=== PATIENT | female | born 1990 | race Caucasian/White ===

== ENCOUNTER 2019-01-20 14:27 | Inpatient (IN) ==
[2019-01-20] MEDS ORDERED: NS 1,000 ML ONE (14:47)
--- NOTE | 2019-01-20 14:58 | PROVIDER DOCUMENTATION ---
HPI-General Adult - General Chief Complaint: SEPSIS ALERT - P Stated Complaint: CHILLS / FEVER / CHEST SIMMONS Time Seen by Provider: 01/20/19 14:40 Source: patient Allergies/Adverse Reactions: Patient Allergies Allergy/AdvReac Type Severity Reaction Status Date / Time No Known Allergies Allergy Verified 01/20/19 14:58 Home Medications: Home Medication List Medication Instructions Recorded Confirmed Last Taken Type NK [No Home Medications] 01/20/19 01/20/19 Unknown History - History of Present Illness -Gen Adult Nature of Presenting Problems: 28yo female presents with CC of nausea, vomiting, and and fevers. The onset was today. The patient reports that over the last 2 weeks she has noted right low back pain as well as chills. The patient reports that she has not had much of an appetite. She reports that she has also had some abdominal pain. The patient reports hx of ureter replacement in July after injured ureter in endometriosis surgery, and she has been followed by a urologist for this and has been having pain when she holds her urine. The patient denies other PMH outside of endometriosis. Review of Systems - Adult - REVIEW OF SYSTEMS - ADULT Constitutional: reports: fever Eyes: reports: no symptoms reported. denies: eye pain Ears, Nose, Mouth & Throat: reports: no symptoms reported. denies: throat pain Cardiovascular: reports: no symptoms reported. denies: chest pain Respiratory: reports: no symptoms reported Gastrointestinal: reports: abdominal pain, nausea, vomiting Genitourinary: reports: flank pain, other (pain with holding urination). denies: dysuria Musculoskeletal: reports: no symptoms reported Integumentary: reports: no symptoms reported Neurological: reports: other (lightheadedness) Psychiatric: reports: no symptoms reported. denies: alcohol/drug dependence Endocrine: reports: no symptoms reported Hematologic/Lymphatic: reports: no symptoms reported, other (no bleeding) Allergic/Immunologic: reports: no symptoms reported, other (no swelling) Past History - Adult - PAST MEDICAL HISTORY-ADULT Review of Records: reports: Old Records Reviewed Major Childhood Illnesses: reports: denies history Cardiovascular: reports: denies history Respiratory: reports: denies history Gastrointestinal: reports: GERD Obstetrical/Gynecological: reports: endometriosis, ovarian cysts Genitourinary: reports: denies history Musculoskeletal: reports: denies history Neurological: reports: denies history Endocrine/Immune: reports: denies history Other Conditions: reports: denies history - PRIOR SURGERIES/PROCEDURES Surgical/Procedure History: reports: reviewed, not pertinent, other (D&C) - IMMUNIZATION STATUS Childhood Immunizations: See Nurse Assessment Flu Vaccine: See Nurse Assessment - FAMILY HISTORY Family History: reviewed, not pertinent Physical Exam-General - PHYSICAL EXAM-ADULT Initial Vital Signs Reviewed: Yes - CONSTITUTIONAL General Appearance: alert, mild distress, anxious - EYES Eyes: negative: conjuctival exudate, photophobia, scleral icterus - HEAD, EARS, NOSE, MOUTH & THROAT HENMT: normocephalic/atraumatic, moist mucous membranes - NECK Neck: non-tender - RESPIRATORY Respiratory: normal breath sounds, no respiratory distress - CARDIOVASCULAR Cardiovascular: no edema, tachycardia - GASTROINTESTINAL (ABDOMEN) Abdominal Exam: soft, rebound, tenderness (RLQ), McBurney's point tenderness. negative: guarding - MUSCULOSKELETAL Back Exam: no CVA tenderness Extremity: non-tender - SKIN Integumentary: normal color, warm/dry - NEUROLOGIC Neurologic: grossly normal - PSYCHIATRIC Psych/Mental Status: normal mood/affect, normal thought content, normal thought process, anxious Progress - PLAN OF CARE/RESULTS Progress/Plan/Lab Results: Vital Signs - 8 hr 01/20/19 14:32 Temperature 105.5 F H Pulse Rate 170 H Respiratory Rate 24 Blood Pressure 156/81 O2 Sat by Pulse Oximetry 96 Orders Category Date Time Status Cardiac Monitoring DIRECTED Care 01/20/19 14:41 Active ED: Urine Bedside ORDERED Care 01/20/19 14:52 Ordered IV Insertion ORDERED Care 01/20/19 14:41 Active Notify MD of + Sepsis Screen NOW Care 01/20/19 14:41 Active Notify Physician As Ordered Care 01/20/19 14:41 Active CHEST-1 VIEW [RAD] Stat Exams 01/20/19 14:41 Ordered BLOOD CULTURE [BLDCUL] Stat Lab 01/20/19 14:41 Uncollected CBC WITH DIFF [HEME] Stat Lab 01/20/19 14:41 Uncollected CK PROFILE [SP CHEM] Stat Lab 01/20/19 14:41 Uncollected COMPREHENSIVE METABOLIC PANEL [CHEM] Stat Lab 01/20/19 14:41 Uncollected LACTATE, PLASMA [CHEM] Q3H Lab 01/20/19 14:45 Uncollected LACTATE, PLASMA [CHEM] Q3H Lab 01/20/19 17:45 Uncollected LACTATE, PLASMA [CHEM] Q3H Lab 01/20/19 20:45 Uncollected TEST-SERUM [PREG] Stat Lab 01/20/19 14:52 Ordered TEST-URINE [PREG] Stat Lab 01/20/19 14:43 Uncollected PROTIME WITH INR [COAG] Stat Lab 01/20/19 14:41 Uncollected PTT [COAG] Stat Lab 01/20/19 14:41 Uncollected TROPONIN T Stat Lab 01/20/19 14:[address] W/POSS RFLX CULT [URINALYSIS] Stat Lab 01/20/19 14:41 Uncollected 0.9% Sodium Chloride Inj [Ns] 1,000 ml Med 01/20/19 14:47 Discontinued .ROUTE As directed Oxygen Device Stat Oth 01/20/19 14:41 Active EKG [EKG] Stat Ther 01/20/19 14:52 Ordered Result Diagrams: 01/20/19 15:00 01/20/19 14:52 - REASSESSMENT Reassessment #1 Status: improving (HR improved with fluids. Urine appears infectious. Given hx, some concern for pylonephritis or other intra-abdominal infection. Will plan for CT abd/pelvis.) Reassessment #2 Status: other (Discussed case with) Departure - Departure Date of Disposition Decision: 01/20/19 Time of Disposition Decision: 17:14 DIAGNOSIS: Pyelonephritis Sepsis Qualifiers: Sepsis type: sepsis due to unspecified organism Sepsis acute organ dysfunction status: without acute organ dysfunction Qualified Code(s): A41.9 - Sepsis, unspecified organism Disposition: ADMITTED INPATIENT 09 Certified Medical Emergency: Emergent Condition: Fair Referrals and Follow-Ups: None,PCP [Primary Care Provider] - - Critical Care Note This patient required my direct & personal management of CC.: No Attestation - Physician/ ANNA Attestation Patient care was provided by Advanced Practice Provider:: No The physician spent face to face time with patient:: Yes Advanced Practice Provider documentation review:: Supervising physician onsite and consulted in the evaluation and care of this patient. The physician did have a face to face encounter with the patient.
[2019-01-20] MEDS ORDERED: ZOFRAN IV ONE (15:19)
[2019-01-20] MEDS ORDERED: NS 1,000 ML IV ONE ×3 (15:28→18:13)
[2019-01-20] MEDS ORDERED: TYLENOL PO ONE (15:30)
[2019-01-20] MEDS ORDERED: NS 2,000 ML IV ONE (15:31)
[2019-01-20 15:33] LABS: INR 1.04; PROTIME 14.1 Seconds (11.0-16.0)
[2019-01-20 15:33] LABS: BILIRUBIN URINE NEGATIVE (NEGATIVE); BLOOD URINE 2+ (NEGATIVE); CLARITY VERY CLOUDY (CLEAR); COLOR YELLOW; GLUCOSE URINE NEGATIVE (NEGATIVE); KETONE URINE TRACE mg/dL (NEGATIVE); LEUKOCYTES URINE 2+ (NEGATIVE); NITRITE URINE POSITIVE (NEGATIVE); PROTEIN URINE 2+(100 mg/dL) mg/dL (NEGATIVE); SP GRAVITY URINE 1.015; UROBILINOGEN URINE NORMAL
[2019-01-20 15:34] LABS: PTT 35.3 Seconds (22.3-41.8)
--- NOTE | 2019-01-20 15:36 | Diag Imaging Result Doc PS360 ---
CHEST-1 VIEW - 01/20/2019 INDICATION: possible sepsis COMPARISON: 06/14/2018 FINDINGS: The lungs are normally expanded and clear. Heart size and mediastinal contours are normal. No pneumothorax or pleural effusion. IMPRESSION: Negative exam. Electronically signed by Samuel Griffith 01/20/2019 3:34 PM
[2019-01-20 15:37] LABS: URINE SOURCE CLEAN CATCH
[2019-01-20 15:38] LABS: URINE BACTERIA 4+ /HFP; URINE EPITHELIAL CELLS >10 /HPF (<10); URINE WBC TNTC /HPF (<10); URINE YEAST NONE SEEN /HPF
[2019-01-20 15:39] LABS: AGAP 13; ALBUMIN 4.3 g/dL (3.5-5.0); ALKALINE PHOSPHATASE 84 U/L (32-104); BUN 11 mg/dL (8-22); CALCIUM 9.2 mg/dL (8.8-10.2); CHLORIDE 105 mmol/L (98-107); CK PROFILE 67 U/L (24-173); COSMO 274; CREATININE 0.8 mg/dL (0.5-0.9); ESTIMATED GFR > 60; GLUCOSE 115 mg/dL (70-104); GOT 24 U/L (10-30); GPT 15 U/L (10-36); POTASSIUM 4.4 mmol/L (3.5-5.1); SODIUM 137 mmol/L (136-145); TCO2 19 mmol/L (25-35); TOTAL PROTEIN 7.8 g/dL (6.3-8.3)
[2019-01-20 15:39] LABS: URINE CAST NONE SEEN /LPF; URINE CRYSTAL NONE SEEN /HPF
[2019-01-20 16:02] LABS: BASO# 0.01 X1000 (0.0-0.2); BASO% 0.1 % (0.0-0.8); EOS# 0.02 X1000 (0.0-0.7); EOS% 0.1 % (0.0-10.0); HEMATOCRIT 37.9 % (37.0-47.0); HEMOGLOBIN 12.7 g/dL (12.0-16.0); IMM GRAN# 0.04 X1000 (0.0-0.04); IMM GRAN% 0.3 % (0.0-0.5); LYMPH# 1.17 X1000 (1.2-3.4); LYMPH% 8.4 % (20.5-51.1); MCH 28.9 PG (27-31); MCHC 33.5 g/dL (33-37); MCV 86.1 FL (81-99); MONO% 2.1 % (1.7-9.3); MPV 10.5 FL (7.4-10.4); NEUT# 12.45 X1000 (1.4-6.5); PLT 386 X1000 (130-400); RDW 11.8 % (11.5-14.5); WBC 13.99 X1000 (4.8-10.8)
[2019-01-20] MEDS ORDERED: ROCEPHIN 2 GM in NS 50 ML IV ONE (16:06)
--- NOTE | 2019-01-20 16:47 | Diag Imaging Result Doc PS360 ---
EXAM: CT ABD/PELVIS W/IV CONT ONLY INDICATION: abdominal pain and fevers TECHNIQUE: This exam was performed using automated exposure control, adjustment of mA or kV according to patient size, and/or use of iterative reconstruction technique. COMPARISON: 08/11/2018 FINDINGS: There is mild nonspecific hepatic periportal edema. The liver is unremarkable, otherwise. The gallbladder, spleen, pancreas, and adrenal glands are unremarkable. Since the previous study, there has been removal of the right ureteral stent. There is abnormal enhancement of the right kidney in a striated nephrogram pattern consistent with pyelonephritis. The right renal pelvis and right ureter are still mildly prominent and there is mild enhancement of the urothelium of the right ureter indicating infection. There is also thickening of the urinary bladder wall that is probably a combination of cystitis and underdistention. The left kidney is essentially unremarkable. There is a left ovarian cyst measuring up to 3.1 cm. There is small volume free fluid layering in the pelvis and in the upper paracolic gutter on the left. The appendix is normal. No focal bowel wall thickening or bowel obstruction is appreciated. There is abundant stool in the colon suggesting possible constipation. The remainder of the GI tract is grossly unremarkable. IMPRESSION: 1.Right pyelonephritis as described. 2.Interval removal of the right ureteral stent and still mild prominence of the right renal collecting system and right ureter. However, this could simply be due to the infection. 3.Small volume free fluid mainly layering in the pelvis as described. 4.3.1 cm left ovarian cyst. 5.Nonspecific mild hepatic periportal edema. Electronically signed by Thanh Anaya 01/20/2019 4:45 PM
--- NOTE | 2019-01-20 17:12 | ED EKG INTERP ---
This chart was entered by Gustavo Long Scribe, acting as scribe for Gina Escobedo MD. EKG Interpretation - EKG Time of EKG reading by physician:: 15:10 EKG Read and Signed by:: Gina Escobedo EKG Interpretation (*Must complete 3 of following elements*): Abnormal Rate: 143 Rhythm: sinus tachycardia ST Wave: non-specific ST changes Attestation - Physician/ ANNA Attestation Patient care was provided by Advanced Practice Provider:: No The physician spent face to face time with patient:: Yes Advanced Practice Provider documentation review:: Supervising physician onsite and consulted in the evaluation and care of this patient. The physician did have a face to face encounter with the patient. This chart was documented by the indicated scribe, (Gustavo Long Scribe) and accurately reflects the services I performed and decisions made by me, Gina Escobedo MD, as attested by the provider's signature.
--- NOTE | 2019-01-20 18:12 | EKG Report ---
Test Performed on : 01/20/2019 3:09:34 PM Test Reason : tachycardia Blood Pressure : / mmHG Vent. Rate : 143 BPM Atrial Rate : 143 BPM P-R Int : 114 ms QRS Dur : 072 ms QT Int : 266 ms P-R-T Axes : 027 063 -10 degrees QTc Int : 410 ms Sinus tachycardia. Nonspecific ST and T wave abnormality Abnormal ECG When compared with ECG of 04-MAY-2018 19:18, Nonspecific T wave abnormality has replaced inverted T waves in Anterior leads Unconfirmed Result
--- NOTE | 2019-01-20 19:13 | HISTORY AND PHYSICAL ---
HISTORY OF PRESENT ILLNESS: She is a pleasant 28-year-old female who comes from home with flank pain and fever and generalized discomfort. When she came in, she was tachycardic. She has a history of frequent UTIs and she has had a damaged ureter related to postop complication during a procedure for endometriosis, which that has been a bit. She saw Dr. Coats, who is her urologist, on the and had evaluation at that point. I guess at that point she did not have a UTI and was felt to be normal. She came in today. She has positive nitrites, lkd-[id number]-count white blood cells, although lots of squamous cells, but clearly a positive UA and white count of 14,000. She is tachycardic in the 130s and has a temperature of 105.5. CT scan reveals pyelonephritis of her right kidney. So, in any case, we are going to admit her for sepsis and pyelonephritis. I may get a urology opinion as well just to see if she needs anything else from that perspective and we will continue to follow closely and keep her on antibiotics. Although, I think I am probably going to add gentamicin just because of how toxic-appearing she is and we will continue treatment and follow closely. Past medical history really negative except for the endometriosis. PAST SURGICAL HISTORY: She has had a right oophorectomy. FAMILY HISTORY: Is reviewed and noncontributory. Social history: No tobacco or ethanol. RDU. REVIEW OF SYSTEMS: Otherwise negative times a 10 point review of systems. PHYSICAL EXAM: VITAL SIGNS: Currently blood pressure 103/69, heart rate 128, respiratory rate 18, temperature 99.8 degrees, T-max 103 degrees. GENERAL: A well-developed female in no acute distress. HEAD EXAM: Was normocephalic atraumatic. EYE EXAM: Pupils equal, round, reactive to light. Extraocular moves were intact. EAR NOSE AND THROAT EXAM: She had moist mucous membranes. NECK EXAM: Was supple. CARDIOVASCULAR: Regular rate and rhythm. Tachy. PULMONARY: Bilateral breath sounds clear to auscultation. GI: Was soft, nontender, nondistended. Bowel sounds are positive. : She had right CVA tenderness. NEUROLOGICAL: Nonfocal. LABORATORY DATA: White count is 13.9, creatinine 0.8. Urine was extremely positive. CT again showed right pyelonephritis with mild prominence of the right renal collecting system. ASSESSMENT: This is a 28-year-old female with pyelonephritis with concern over possible underlying sepsis associated with pyelonephritis. Problems: 1. Right pyelonephritis and sepsis. We will continue hydration, broad spectrum antibiotics. I am going to give her gentamicin in addition to the Rocephin which I think is a good start and we will continue to treat. Her lactate levels are a bit elevated and she is undergoing the sepsis protocol and we will continue treatment. We are going to monitor her in the step-down unit and follow closely. I am going to get a urology opinion just to make sure there is no concern over obstruction in her collecting system. 2. Sepsis. We are going to treat primary source and see how she does. cc: Damon Ivey MD
[2019-01-20] MEDS ORDERED: MORPHINE IV PRN (21:08)
[2019-01-20] MEDS ORDERED: GENTAMICIN IV PER PHARMACY MISC SCH (21:08)
[2019-01-20] MEDS ORDERED: SODIUM CHLORIDE 0.9% INJ SCH (21:08)
[2019-01-20] MEDS ORDERED: ZOFRAN IV PRN (21:08)
[2019-01-20] MEDS: NS IV SCH (22:08)
[2019-01-20] MEDS: NS 1,000 ML IV SCH (22:08)
[2019-01-20] MEDS: GENTAMICIN IV SCH (22:08)
[2019-01-20] MEDS: PROTONIX IV SCH (22:09)
[2019-01-21 06:45] LABS: BASO# 0.01 X1000 (0.0-0.2); BASO% 0.1 % (0.0-0.8); EOS# 0.08 X1000 (0.0-0.7); EOS% 0.5 % (0.0-10.0); HEMATOCRIT 30.7 % (37.0-47.0); IMM GRAN# 0.02 X1000 (0.0-0.04); IMM GRAN% 0.1 % (0.0-0.5); LYMPH% 12.8 % (20.5-51.1); MCH 28.5 PG (27-31); MCHC 32.6 g/dL (33-37); MCV 87.5 FL (81-99); MONO# 1.19 X1000 (0.11-0.59); MPV 10.3 FL (7.4-10.4); NEUT% 78.5 % (42.2-75.2); PLT 323 X1000 (130-400); RBC 3.51 XMIL (4.2-5.4)
[2019-01-21] MEDS: NS 1,000 ML IV SCH ×2 (07:06→15:09)
[2019-01-21 07:16] LABS: AGAP 12; BUN 7 mg/dL (8-22); CHLORIDE 109 mmol/L (98-107); COSMO 277; CREATININE 0.7 mg/dL (0.5-0.9); ESTIMATED GFR > 60; GLUCOSE 84 mg/dL (70-104); SODIUM 140 mmol/L (136-145); TCO2 19 mmol/L (25-35)
[2019-01-21 07:20] LABS: CALCIUM 7.5 mg/dL (8.8-10.2)
[2019-01-21] MEDS ORDERED: NORCO-7.5 PO PRN (14:51)
[2019-01-21] MEDS: ROCEPHIN 1 GM in NS 50 ML IV SCH (15:09)
--- NOTE | 2019-01-21 15:13 | PROGRESS NOTE ---
DATE: 01/21/2019 SUBJECTIVE: The patient looks a lot better. She seems to be in better spirits. Heart rate is down. She still has some discomfort but overall it has improved. OBJECTIVE: Blood pressure is 102/69, heart rate 95, respiratory rate 20, temperature 98.3 degrees, T-max was 103.3 degrees and that was yesterday at 3:30. Cardiovascular: Regular rate and rhythm. Pulmonary: Bilateral breath sounds clear to auscultation. GI: Soft, nontender, nondistended. Bowel sounds were positive. She still had some CVA tenderness. Laboratory Data: Micro shows gram-negative lawrence in her urine. White count is 14.8 with a hemoglobin and hematocrit of 10 and 30, platelets of 323,000. Basic was normal. ASSESSMENT AND PLAN: 1. Gram-negative lawrence pyelonephritis with sepsis. Sepsis has, I believe, been resolved. She is on Rocephin and gentamicin, pending culture results. We will switch to oral pain medications and we will continue to follow. I think she is stable enough for the floor and I believe we can anticipate discharge tomorrow. 2. Anemia. We will pursue anemia labs and monitor closely. cc: Damon Ivey MD
[2019-01-21] MEDS ORDERED: DITROPAN PO PRN (18:27)
[2019-01-21] MEDS: PROTONIX IV SCH (20:35)
--- NOTE | 2019-01-21 21:46 | CONSULTATION ---
DATE OF CONSULTATION: 01/21/2019 CONSULT PHYSICIAN: Dr. Loni MD with hospitalist service. CONSULTATION FOR: Right pyelonephritis. History of urologic surgery. HISTORY OF PRESENT ILLNESS: A 28-year-old female with a somewhat complicated urologic history. She reports undergoing a robotic laparoscopy with lysis of adhesions for endometriosis in March at [facility] which reportedly resulted and right oophorectomy. There was reportedly undiagnosed right ureteral injury. 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 At that time, the patient underwent robotic exploration with ureteral stent placement by Dr. Morrison. The patient states this happening in March 2018. She reports the stent stayed for approximately 4 weeks and was removed. After that, she redeveloped abdominal pain and was told that her ureter did not heal. She then underwent robotic "repair of her ureter" in April 2018. She reports having a nephrostomy drain, ALEXANDER drain and ureteral stent for approximately 4 weeks. She reports eventually all those were removed and she originally did well but then redeveloped problems and was told that she still had persistent urinary leakage. She ultimately underwent open ureteral reimplant sometime in June. She states that she kept the ureteral stent for just over 4 weeks and had it removed in the office. She has done fairly well with exception to bladder spasm. She was seen [address] Morrison's office and was told that she was doing well. The patient reports she has had cloudy, foul-smelling urine as well as numbness over both of her thighs. She then developed fevers, chills and right flank pain which prompted presentation to the emergency room. She was found to have tachycardia and fever. She was found to have urinalysis consistent with urinary tract infection. Her CT scan revealed right pyelonephritis with mild hydronephrosis. She reports that her pain has improved some. So have her fevers. She does state that she has bladder spasms with urgency and occasional urge urinary incontinence. PAST SURGICAL HISTORY: 1. Robotic lysis of endometrial adhesions with right oophorectomy. 2. Ureteral stent placement. 3. Robotic ureteral repair. 4. Open right ureteral reimplant. ALLERGIES: No known drug allergies. HOME MEDICATIONS: None. SOCIAL HISTORY: Denies tobacco or alcohol use. FAMILY HISTORY: Negative for malignancies. REVIEW OF SYSTEMS: Reviewed 12 systems negative except as per the HPI. PHYSICAL EXAMINATION: Temperature 99, pulse 94, BP 92/61.General: No acute distress. Pleasant female. HEENT: Normocephalic, atraumatic. Cardiovascular: Regular rhythm. Pulmonary: Bilateral breath sounds. Abdomen: Soft, nontender, nondistended. She has a midline infraumbilical scarring with staple ryan noted down to her pubic symphysis. She also has laparoscopic port sites that have healed well. No evidence of hernia. Back: Mild right CVA tenderness. : Bladder is nontender to palpation. Dermatologic: No obvious skin rashes. Neurologic: Alert and x3. Psychiatric: Appropriate mood and affect. PERTINENT LABORATORY DATA: White cell count is 15,000, creatinine is 0.7. CT abdomen and pelvis on 01/20/2019, which reveals heterogeneous appearance of the right kidney consistent with pyelonephritis as well as prominence of the right renal pelvis, which could be consistent with mild hydronephrosis. There was no evidence of urolithiasis. Pertinent microbiology: Her urine culture is growing gram-negative rods. ASSESSMENT/PLAN: A 28-year-old female with a complicated urologic history related to the right ureteral injury with eventual open right ureteral reimplant. Without having access to the operative records, she likely has reflux and anastomosis which could contribute to both recurrent urinary tract infection as well as chronic mild hydronephrosis appearance. I have discussed with the patient that she does not have evidence of severe hydronephrosis or stones and placing an ureteral stent at this time would not benefit her medically. We discussed medications for bladder spasms. I have discussed with the patient that her bladder spasms are likely related to her urinary tract infection. She reports that Dr. Morrison had her on oral anti-spasmodic and we discussed that she could try Ditropan while in the hospital. PLAN: 1. I agree with antibiotics. 2. No urologic intervention needed at this time. 3. I will start her on Ditropan 5 mg 3 times a day as needed for spasms. 4. I have advised that once she is treated for her pyelonephritis, she has a close follow up with Dr. Morrison. Since there is a report of recurrent urinary tract infections, I will defer to Dr. Morrison whether daily antibiotic prophylaxis would be something she could benefit from or not. Thank you for the consultation. cc: MD Damon Gan MD
[2019-01-21] MEDS: NS IV SCH (22:28)
[2019-01-21] MEDS: GENTAMICIN IV SCH (22:28)
[2019-01-22 07:21] LABS: BASO# 0.01 X1000 (0.0-0.2); BASO% 0.1 % (0.0-0.8); EOS% 2.3 % (0.0-10.0); HEMATOCRIT 29.4 % (37.0-47.0); HEMOGLOBIN 9.5 g/dL (12.0-16.0); IMM GRAN# 0.02 X1000 (0.0-0.04); IMM GRAN% 0.2 % (0.0-0.5); LYMPH# 1.66 X1000 (1.2-3.4); LYMPH% 18.8 % (20.5-51.1); MCH 28.3 PG (27-31); MCHC 32.3 g/dL (33-37); MCV 87.5 FL (81-99); MONO% 9.1 % (1.7-9.3); MPV 10.2 FL (7.4-10.4); NEUT# 6.13 X1000 (1.4-6.5); NEUT% 69.5 % (42.2-75.2); PLT 296 X1000 (130-400); RBC 3.36 XMIL (4.2-5.4); RDW 12.1 % (11.5-14.5); WBC 8.82 X1000 (4.8-10.8)
[2019-01-22 07:50] LABS: IRON SATURATION 11 %; TIBC 222 ug/dL; TOTAL IRON 25 ug/dL (49-151); UNBOUND IRON 197 ug/dL (112-346)
[2019-01-22 07:54] LABS: AGAP 7; ALB/GLOB RATIO 1.1; ALBUMIN 3.1 g/dL (3.5-5.0); ALKALINE PHOSPHATASE 62 U/L (32-104); BUN 5 mg/dL (8-22); CALCIUM 7.7 mg/dL (8.8-10.2); CHLORIDE 110 mmol/L (98-107); COSMO 271; CREATININE 0.7 mg/dL (0.5-0.9); ESTIMATED GFR > 60; GLUCOSE 89 mg/dL (70-104); GOT 12 U/L (10-30); GPT 11 U/L (10-36); POTASSIUM 4.1 mmol/L (3.5-5.1); SODIUM 137 mmol/L (136-145); TCO2 20 mmol/L (25-35); TOTAL BILIRUBIN < 0.15 mg/dL (0.20-1.00); TOTAL PROTEIN 5.8 g/dL (6.3-8.3)
[2019-01-22 08:03] LABS: FERRITIN 102 ng/mL (13-150)
[2019-01-22 12:00] VITALS: BP 109/86
[2019-01-22] MEDS ORDERED: FOLIC ACID 1 MG in NS 50 ML IV SCH (12:00)
[2019-01-22] MEDS: ROCEPHIN 1 GM in NS 50 ML IV SCH (13:35)
--- NOTE | 2019-01-23 09:42 | DISCHARGE SUMMARY ---
ADMISSION DATE: 01/20/2019 DISCHARGE DATE: 01/22/2019 DISCHARGE DIAGNOSIS: Right pyelonephritis. CONSULTATIONS: Dr. Francisco, Urology. HISTORY AND HOSPITAL COURSE: Briefly, this is a 28-year-old female. She has a history of ureteral damage associated with an endometrial surgery and she is followed by Dr. Morrison. She was found to have pyelonephritis. She was septic on admission with a heart rate in the 130s. She responded to fluids and antibiotics. She was maintained on gentamicin and Rocephin. Urine culture ended up growing out Escherichia coli that was pansensitive, so she will be discharged on Keflex. She is a bit anemic and there is some iron deficiency there, at least anemia of chronic disease, but she is also folate deficient. We discharged her on Keflex and we will continue to follow. DISPOSITION: I anticipate discharge today. DISCHARGE MEDICATIONS: Keflex 500 t.i.d. for 10 days, and folic acid, and at least a multivitamin with iron. Dr. Francisco also recommended Ditropan as needed for bladder spasm. FOLLOWUP: With Dr. Morrison, her primary urologist. TIME SPENT: A 32 minute discharge. cc: Damon Ivey MD
== END 2019-01-22 14:45 | disposition home or self-care (01) | DRG 872 ==
LOC: P.ED 14:27 → 2N 18:57 → SUATTDRO 18:57 → 3N 01-21 17:12
PROVIDERS: ADMIT Internal Medicine; ATTEND Internal Medicine